=== PATIENT | male | born 1990 | race Caucasian/White ===

== ENCOUNTER 2023-08-06 20:29 | Emergency (ER) | payer OTHER ==
[2023-08-06] MEDS ORDERED: IBUPROFEN 600 MG TAB PO STA (21:24)
[2023-08-06] MEDS ORDERED: ACETAMINOPHEN TAB 325 MG TAB PO STA (21:24)
[2023-08-06 21:25] VITALS: RESP 18; TEMP 98.4
--- NOTE | 2023-08-06 21:25 | ED ---
URI HPI - General Source: patient Mode of arrival: ambulatory Limitations: no limitations <Man Cruz - Last Filed: 08/06/23 21:24> - History of Present Illness MD Complaint: cough, sore throat, nasal congestion Onset/Timin -: days(s) Quality: burning Consistency: constant Improves With: nothing Worsens With: nothing Context: sick contacts Associated Symptoms: headache, rhinorrhea, nasal congestion, sore throat, cough Treatments Prior to Arrival: none <Emmanuel Gómez - Last Filed: 08/07/23 00:01> - General Chief Complaint: Upper Respiratory Infection Stated Complaint: headache cough Time Seen by Provider: 08/06/23 21:24 - History of Present Illness Initial Comments: 32-year-old male presenting with chief complaint of bodyaches, headache, and cough for the last 2 days. (Man Cruz) - Related Data Previous Rx's Medication Instructions Recorded Albuterol Inhaler [Ventolin Hfa 1 - 2 puff INHALATION Q6HR PRN #1 08/07/23 Inhaler] each Promethazine 6.25MG/5Ml [Phenergan 5 ml PO Q4HR PRN #120 ml 08/07/23 Syrup] predniSONE [Deltasone] 20 mg PO BID #8 tab 08/07/23 Allergies Allergy/AdvReac Type Severity Reaction Status Date / Time Penicillins Allergy Unknown Verified 08/06/23 21:22 Review of Systems ROS Other: All systems not noted in ROS Statement are negative. <Man Cruz - Last Filed: 08/06/23 21:24> ROS Other: All systems not noted in ROS Statement are negative. Constitutional: Denies: fever, weakness Eyes: Denies: eye discharge ENT: Reports: throat pain, congestion Respiratory: Reports: cough. Denies: dyspnea, hemoptysis Cardiovascular: Denies: chest pain, palpitations, edema, syncope Gastrointestinal: Denies: abdominal pain, nausea, vomiting, diarrhea Genitourinary: Denies: dysuria, hematuria Musculoskeletal: Reports: myalgia. Denies: back pain Skin: Denies: rash Neurological: Reports: headache. Denies: weakness, numbness, confusion <Emmanuel Gómez - Last Filed: 08/07/23 00:01> ROS Statement: Those systems with pertinent positive or pertinent negative responses have been documented in the HPI. Past Medical History Past Medical History: Asthma History of Any Multi-Drug Resistant Organisms: None Reported Past Surgical History: No Surgical Hx Reported Past Psychological History: No Psychological Hx Reported Smoking Status: Current every day smoker Past Alcohol Use History: Occasional Past Drug Use History: Marijuana <Man Cruz - Last Filed: 08/06/23 21:24> General Exam Limitations: no limitations <Man Cruz - Last Filed: 08/06/23 21:24> Limitations: no limitations General appearance: alert, in no apparent distress Head exam: Present: atraumatic, normocephalic Eye exam: Present: normal appearance. Absent: scleral icterus, conjunctival injection ENT exam: Present: other (Section of the pharynx) Neck exam: Present: normal inspection, full ROM, lymphadenopathy. Absent: tenderness, meningismus Respiratory exam: Present: normal lung sounds bilaterally. Absent: respiratory distress, wheezes, rales, rhonchi, stridor, accessory muscle use Cardiovascular Exam: Present: normal rhythm, tachycardia, normal heart sounds. Absent: systolic murmur, diastolic murmur, rubs, gallop GI/Abdominal exam: Present: soft. Absent: distended, tenderness, guarding, rebound, rigid, mass Extremities exam: Present: normal inspection, normal capillary refill. Absent: pedal edema, calf tenderness Back exam: Present: normal inspection. Absent: CVA tenderness (R), CVA tenderness (L) Neurological exam: Present: alert Skin exam: Present: warm, dry, intact, normal color. Absent: rash <Emmanuel Gómez - Last Filed: 08/07/23 00:01> - General Exam Comments Initial Comments: Visual Physical Exam Vital signs reviewed General: Well-appearing, nontoxic, no acute distress. Head: Normocephalic, atraumatic Eyes: PERRLA, EOMI ENT: Airway patent Chest: Nonlabored breathing Skin: No visual rash, normal skin tone Neuro: Alert and oriented 3 Musculoskeletal: No gross abnormalities (Man Cruz) Course Vital Signs 08/06/23 21:19 Temperature 98.4 F Pulse Rate 102 H Respiratory 18 Rate Blood Pressure 129/79 O2 Sat by Pulse 98 Oximetry Medical Decision Making <Man Cruz - Last Filed: 08/06/23 21:24> <Emmanuel Gómez - Last Filed: 08/07/23 00:01> - Medical Decision Making I performed the quick note portion of this visit electronically signed Man Cruz PA-C (Man Cruz) The patient had x-ray of the chest which I interpreted as negative for acute infiltrate, pneumothorax, cardiomegaly. (Emmanuel Gmóez) - Lab Data Lab Results 08/06/23 Range/Units 21:23 Influenza Type A (PCR) Not Detected (Not Detectd) Influenza Type B (PCR) Not Detected (Not Detectd) RSV (PCR) Not Detected (Not Detectd) SARS-CoV-2 (PCR) Not Detected (Not Detectd) Disposition <Man Cruz - Last Filed: 08/06/23 21:24> Is patient prescribed a controlled substance at d/c from ED?: No <Emmanuel Gómez - Last Filed: 08/07/23 00:01> Clinical Impression: Bronchitis Disposition: HOME SELF-CARE Condition: Good Instructions (If sedation given, give patient instructions): Acute Bronchitis (ED) Prescriptions: predniSONE [Deltasone] 20 mg PO BID #8 tab Promethazine 6.25MG/5Ml [Phenergan Syrup] 5 ml PO Q4HR PRN #120 ml PRN Reason: Cough Albuterol Inhaler [Ventolin Hfa Inhaler] 1 - 2 puff INHALATION Q6HR PRN #1 each PRN Reason: Wheezing Referrals: None,Stated [Primary Care Provider] - 1-2 days
--- NOTE | 2023-08-06 23:17 | XR ---
EXAMINATION TYPE: XR chest 2V DATE OF EXAM: 08/06/2023 COMPARISON: NONE HISTORY: Cough TECHNIQUE: Frontal and lateral views of the chest are obtained. FINDINGS: There is no focal air space opacity, pleural effusion, or pneumothorax seen. The cardiac silhouette size is within normal limits. The osseous structures are intact. IMPRESSION: No acute pulmonary infiltrate..
[2023-08-07] MEDS ORDERED: predniSONE 20 MG TAB PO STA (00:01)
[2023-08-07 00:37] VITALS: BP 119/58; PULSE 82
== END 2023-08-07 00:23 | disposition home or self-care (01) ==
LOC: EC 20:29
DX: J40 Bronchitis, not specified as acute or chronic (principal); F17.200 Nicotine dependence, unspecified, uncomplicated; F12.90 Cannabis use, unspecified, uncomplicated; Z88.0 Allergy status to penicillin; Z20.822 Contact with and (suspected) exposure to COVID-19
CPT/HCPCS: 71046; 87636; 99284